=== PATIENT | female | born 1970 | race Two or more races ===

== ENCOUNTER → 2024-10-24 | Outpatient (CLI) | payer BC, SELFPAY ==
--- NOTE | 2024-10-24 15:00 | XR_ITS ---
Examination: Breast ultrasound, unilateral, left complete Date and time of exam: October 24, 2024 1600 hrs. Indications: Onset left-sided breast pain beginning 8 months ago Technique: Real-time wood scale ultrasonographic imaging performed left breast including all 4 quadrants as well as nipple retroareolar and axillary region. Findings: 8:00 cyst 8 x 7 mm 9:00 cyst 4 x 3 mm No solid nodules Impression: BI-RADS Category 2: Benign findings
== END | disposition home or self-care (01) ==
PROVIDERS: PCP Family Medicine; Referring Provider Family Medicine; Visit Provider Family Medicine
DX: N64.4 Mastodynia (principal)
CPT/HCPCS: 76641